=== PATIENT | male | born 1955 | race Caucasian/White ===

== ENCOUNTER → 2017-02-28 | Outpatient (CLI) | payer OTHER | LOC: MOB LAB 12:30 | PROVIDERS: ATTEND Physician Assistant Medical | DX: R10.84 Generalized abdominal pain (principal) | CPT/HCPCS: 87088 ==

== ENCOUNTER → 2017-02-28 | Outpatient (CLI) | payer OTHER ==
--- NOTE | 2017-02-28 16:35 | DI ---
CT ABDOMEN SCAN WITHOUT IV CONTRAST, 02/28/2017 1:21 PM : Clinical History: Acute left flank pain. Previous Exam: None at this facility. Scans are performed from the lower lung bases through the liver and kidneys without IV contrast. Sagi ttal and coronal reformatted images are generated. The lung bases are clear. The liver size is normal but there is diffuse fatty infiltration. Multiple calcifications are present in the dependent portions of the neck of the gallbladder indicating cholel ithiasis. There is no thickening or edema of the gallbladder wall to indicate acute cholecystitis. Th ere is no abnormality of the spleen, pancreas, and adrenal glands. Both kidneys are normal in size, s hape, position and contour. There is no hydronephrosis or hydroureter. No renal or ureteral calculi a re present. The bladder is normal. There are no abnormal retrocrural or periaortic nodes. No ascites is present. READIN. Both kidneys and ureters and the bladder are normal. 2. Diffuse fatty infiltration of the liver. Cholelithiasis without evidence of acute cholecystitis. CT PELVIS SCAN WITHOUT IV CONTRAST, 02/28/2017 1:21 PM : Clinical History: See above. Previous Exam: None. Scans are performed from the inferior margin of the liver and kidneys to the symphysis pubis without IV contrast. There is no free fluid collection and there is no adenopathy. The appendix is normal. The small bowel , terminal ileum, and ileocecal valve are normal. The colon is also normal. There is a small umbilica l hernia through which only mesenteric fat has herniated. There is prostatic enlargement and there ar e multiple metallic densities within the prostate indicating treatment for prostatic cancer. Bone win zeyad evaluation shows no blastic or lytic bony change. There is a focal 3 mm very sclerotic lesion in the anterior and inferomedial aspect of the left femoral head. This has the appearance of a bone mary nd rather than a metastatic prostate lesion. READING: Normal CT pelvis scan. No blastic or lytic bony change is felt to be present.
== END ==
LOC: CT 13:18
PROVIDERS: ATTEND Physician Assistant Medical
DX: R10.84 Generalized abdominal pain (principal); K80.20 Calculus of gallbladder without cholecystitis without obstruction; K76.0 Fatty (change of) liver, not elsewhere classified
CPT/HCPCS: 74176

== ENCOUNTER → 2017-04-11 | Outpatient (CLI) | payer OTHER ==
[2017-04-11 12:44] LABS: BLOOD UREA NITROGEN 17 mg/dL (7-22); BUN/CREATININE RATIO 15.45 (6-20); CALCIUM 9.7 mg/dL (8.7-10.7); EST GLOMERULAR FILTRATION > 60 (>60 ml/min/1.73m(2)); URIC ACID 6.5 mg/dl (3.8-8.5)
== END ==
LOC: MOB LAB 11:17
DX: M1A.9XX0 Chronic gout, unspecified, without tophus (tophi) (principal)
CPT/HCPCS: 36415; 80048; 84550